=== PATIENT | male | born 1960 | race Caucasian/White ===

== ENCOUNTER 2019-04-22 15:42 | Emergency (ER) | payer OTHER ==
[2019-04-22 16:11] LABS: #Basophils 0.2 thou/uL (0.0-0.2); #Eosinphils 0.1 thou/uL (0.0-0.7); #Lymphocytes 3.5 thou/uL (1.20-3.40); #Monocytes 0.6 thou/uL (0.11-0.59); #Neutrophils 4.4 thou/uL (1.40-6.50); %Basophils 2.6 % (0.0-1.0); %Eosinophils 1.3 % (0.0-10.0); %Monocytes 6.3 % (0.0-10.0); %Neutrophils 49.8 % (42.0-75.0); Hemoglobin 15.4 g/dL (14.0-18.0); Mean Corpuscular HGB CONC 34.2 g/dL (32.0-36.0); Mean Corpuscular Hemoglobin 30.7 pg (27.0-31.0); Mean Corpuscular Volume 89.7 fL (78.0-98.0); Mean Platelet Volume 9.3 fL (7.4-10.4); Platelet Count 248 thou/uL (130-400); RBC Distribution Width 12.6 % (11.5-14.5); Red Blood Cell (RBC) Count 5.02 mill/uL (4.70-6.10); White Blood Cell (WBC) Count 8.9 thou/uL (4.8-10.8)
[2019-04-22 16:33] LABS: ALT (SGPT) 23 U/L (8-55); AST (SGOT) 19 U/L (5-34); Albumin 4.2 g/dL (3.5-5.0); Alkaline Phosphatase 75 U/L (40-110); Anion Gap 13 mmol/L (10-20); BUN (Urea Nitrogen) 17 mg/dL (8.4-25.7); Bilirubin, Total 0.6 mg/dL (0.2-1.2); Calc. Creatinine Clearance 0 mL/min (70-130); Calcium 9.4 mg/dL (7.8-10.44); Carbon Dioxide 25 mmol/L (22-29); Chloride 108 mmol/L (98-107); Estimated GFR-MDRD 58; Globulin 2.3 g/dL (2.4-3.5); Glucose 96 mg/dL (70-105); Potassium 4.2 mmol/L (3.5-5.1); Protein, Total 6.5 g/dL (6.0-8.3); Sodium 142 mmol/L (136-145)
[2019-04-22] MEDS ORDERED: Lorazepam 1 MG TAB ONE (16:46)
--- NOTE | 2019-04-22 16:54 | RAD ---
Chest AP view INDICATION: Hypertension COMPARISON: None FINDINGS: Lungs:The lungs are clear Cardiac silhouette:The cardiomediastinal silhouette appears within normal limits. Pulmonary vasculature:Normal Pleural spaces:No pleural effusion or pneumothorax is demonstrated. Upper abdomen:No abnormality seen. Osseous structures: No acute osseous abnormality. Additional findings:ACDF of the lower cervical spine. IMPRESSION: No acute cardiopulmonary abnormality.
== END 2019-04-22 19:39 | disposition home or self-care (01) ==
LOC: ERS 15:42
DX: I10 Essential (primary) hypertension (principal); F41.9 Anxiety disorder, unspecified; F17.220 Nicotine dependence, chewing tobacco, uncomplicated; Z79.82 Long term (current) use of aspirin; Z79.899 Other long term (current) drug therapy
CPT/HCPCS: 36415; 71045; 80053; 84484; 85025; 87804; 93005; 94760

== ENCOUNTER 2019-08-02 09:53 | Outpatient (CLI) | payer OTHER ==
[2019-08-02] MEDS ORDERED: Iopamidol-370 76% 500 ML 1 ML ONE (09:59)
--- NOTE | 2019-08-02 13:36 | CT ---
CTA OF THE ABDOMEN WITH AND WITHOUT IV CONTRAST: 08/02/19 INDICATION: History of abdominal bruit. COMPARISON: None. TECHNIQUE: Multiple CTA mages were obtained of the abdomen with and without contrast utilizing IV contrast and 3 D reformatted imaging. COMPARISON: None. FINDINGS: There is a heterogeneous, arterial enhancing solid mass involving the right hepatic lobe measuring 1 3.8 x 10.9 x 14 cm with areas of internal low density, possibly related to central necrosis, and area s of internal fat. Findings are suspicious for a large hepatocellular carcinoma of the liver. There is prominent nodularity of the left adrenal gland. The nodule within the adrenal body is consis tent with adenoma. The left adrenal gland nodularity involving the lateral limb is difficult to gaye cterize fully on the current study. Right adrenal gland is normal appearing. Pancreas and spleen appe ar within normal limits. The gallbladder appears within normal limits. No free fluid or enlarged lymph nodes are grossly evide nt. Small and large bowel appear within normal limits. No definite acute osseous abnormality is evident. No acute aortic stenosis, occlusion or aneurysmal formation is evident. 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 The splenic artery or iginates off the aorta and also demonstrates some high grade stenosis off its origin, also likely rel ated to the diaphragmatic crux. The inferior pancreatoduodenal artery originates off the splenic [place] ry origin. Left gastric originates off of the celiac. The common hepatic artery also originates off t he celiac. SMA is patent. Both renal arteries are patent. The IMAs, both common iliac arteries and il iac bifurcations are patent. IMPRESSION: 1. No hemodynamically significant stenosis, occlusion or aneurysmal formation demonstrated invol ving the abdominal aorta. 2. 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 There is also severe narrowing involving the splenic artery origin that arises off of t he abdominal aorta and is likely again related to median arcuate ligament narrowing. 3. Large arterial enhancing heterogeneous mass in the right hepatic lobe is suspicious for prima ry hepatocellular malignancy. Alternatively, an arterially enhancing metastatic lesion could have a s imilar appearance. Further evaluation with a CT or MRI utilizing hepatic mass protocol is recommended . 4. Nodularity involving the left adrenal gland, some of which are likely related to an underlyin g adenoma. The nodularity involving the lateral limb of the left adrenal gland is not well evaluated on current examination. This could be further assessed on the multiphase CT or MR examination recomme nded above. Code T POS: SJDI
== END 2019-08-02 09:54 | disposition home or self-care (01) ==
LOC: BICCT 09:53
PROVIDERS: ATTEND Nurse Practitioner
DX: R09.89 Other specified symptoms and signs involving the circulatory and respiratory systems (principal); I77.1 Stricture of artery; R16.0 Hepatomegaly, not elsewhere classified; E27.8 Other specified disorders of adrenal gland
CPT/HCPCS: 74175; Q9967

== ENCOUNTER 2019-08-15 11:21 | Outpatient (CLI) | payer OTHER ==
[~2019-08-15 11:21] MED LIST: Magnevist 469MG/ML 20 ML VIAL ONE
--- NOTE | 2019-08-15 17:05 | MRI ---
MRI ABDOMEN WITH AND WITHOUT CONTRAST: 08/15/19 HISTORY: R16.0, liver mass. COMPARISON: CT angiogram of the abdomen 08/02/19. FINDINGS: No pleural effusion. No significant pericardial fluid. The background marrow signal is normal. No hydronephrosis. Spleen is unremarkable along with the pancreas. No intrahepatic or extrahepatic bi liary dilatation. No cholelithiasis. Mild hyperplasia of the left adrenal gland with signal loss on the [id number] images of the lateral limb indicative of adenoma. In the liver, involving hepatic segments V, , VII and VIII is a lobular well defined mass which has a T2 hyperintense central scar with arterial phase hyperenhancement and continues to have greater si gnal intensity in the background parenchyma on all phases including a three hour delayed phase. The T 2 hyperintense central scar has progressive fill-in on the delayed phases including the three hour de layed phase. There are a few round central T2 hyperintense foci within the mass. This mass displaces vessels and d oes not infiltrate the adjacent parenchyma nor cause any significant signal alteration of the adjacen t parenchyma. There is no background hepatic cirrhosis. No other mass is appreciated. Pancreas is unremarkable. No dilated loops of bowel in the upper abdomen. IMPRESSION: 1. Left adrenal adenoma. This is a benign finding. 2. 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 As a conservative measure, a follow-up liver protoc ol MRI in six months with Eovist contrast is recommended. [facility] does have Eovist contrast on and this was confirmed. Code: ARTHUR POS: HOME
== END 2019-08-15 11:22 | disposition home or self-care (01) ==
LOC: MRI 11:21
PROVIDERS: ATTEND Internal Medicine Cardiovascular Disease
DX: R16.0 Hepatomegaly, not elsewhere classified (principal); D35.02 Benign neoplasm of left adrenal gland
CPT/HCPCS: 74183; A9579

== ENCOUNTER 2024-04-10 14:29 | Outpatient (CLI) | payer OTHER | END 2024-04-10 14:30 | disposition home or self-care (01) | LOC: BICRAD 14:29 | PROVIDERS: ATTEND Student in an Organized Health Care Education/Training Program | DX: M25.511 Pain in right shoulder (principal); M25.512 Pain in left shoulder; M19.011 Primary osteoarthritis, right shoulder; M19.012 Primary osteoarthritis, left shoulder ==